=== PATIENT | male | born 1995 | race Hispanic/Latino ===

== ENCOUNTER 2019-03-05 16:22 | Emergency (ER) | payer OTHER ==
[~2019-03-05] VITALS: Ht 180.3 cm; Wt 78.0 kg
[2019-03-05] MEDS ORDERED: BACITRACIN OINT 30GM TOP STA (18:27)
[2019-03-05] MEDS ORDERED: LIDOCAINE 1% MDV 20ML VIAL IM ONE (18:30)
[2019-03-05] MEDS ORDERED: NEOSPORIN OINT 0.9 GM PKT (FLOOR STOCK) TOP ONE (18:45)
[2019-03-05 19:07] VITALS: BP 134/79
== END 2019-03-05 19:12 | disposition home or self-care (01) ==
LOC: M ED 16:22
DX: S61.211A Laceration without foreign body of left index finger without damage to nail, initial encounter (principal); S61.213A Laceration without foreign body of left middle finger without damage to nail, initial encounter; W26.9XXA Contact with unspecified sharp object(s), initial encounter; Y92.89 Other specified places as the place of occurrence of the external cause; Y93.G1 Activity, food preparation and clean up; Y99.1 Military activity